=== PATIENT | female | born 1970 | race Caucasian/White ===

== ENCOUNTER → 2020-05-16 09:49 | Outpatient (CLI) | payer OTHER | END | disposition home or self-care (01) | LOC: LAB 09:49 | PROVIDERS: ATTEND Obstetrics & Gynecology Gynecologic Oncology | DX: R97.1 Elevated cancer antigen 125 [CA 125] (principal); I10 Essential (primary) hypertension; E80.6 Other disorders of bilirubin metabolism ==

== ENCOUNTER → 2021-06-13 | Emergency (ER) | payer OTHER | END | disposition left against medical advice (07) | LOC: ER 16:41 | DX: Z53.21 Procedure and treatment not carried out due to patient leaving prior to being seen by health care provider (principal) ==